=== PATIENT | female | born 1960 | race Caucasian/White ===

== ENCOUNTER → 2016-09-26 | Outpatient (CLI) | payer BC ==
[~2016-09-26] MED LIST: AMOXICILLIN500 M2 PO; AUGMENTIN1 TA2 PO; DIFLUCAN150 MG PO; LORTAB 7.5/5001 TA1 PO; NOMEDS *; PHENERGAN25 M3 PO; SYNTHROID 0.0.075 MG PO; SYNTHROID0.088 M3 PO; VITAMIN D1000 IU PO; VITAMIN D50000 I1 PO
[2016-09-26 14:46] LABS: BUN 9 mg/dL (7-18)
[2016-09-26 14:55] LABS: GFR (ESTIMATED) 87 ML/MIN (59-)
== END ==
LOC: CARL-LAB 08:32
PROVIDERS: Internal Medicine Endocrinology, Diabetes & Metabolism
DX: E89.40 Asymptomatic postprocedural ovarian failure (principal); E03.8 Other specified hypothyroidism